=== PATIENT | female | born 1995 | race African-American/Black ===

== ENCOUNTER 2016-10-20 20:12 | Emergency (ER) | payer OTHER ==
[2016-10-20 22:04] VITALS: BP 118/74
== END 2016-10-20 22:04 | disposition home or self-care (01) ==
LOC: ED 20:12
DX: S83.91XA Sprain of unspecified site of right knee, initial encounter (principal); S93.601A Unspecified sprain of right foot, initial encounter; S90.511A Abrasion, right ankle, initial encounter; W10.9XXA Fall (on) (from) unspecified stairs and steps, initial encounter; Y93.89 Activity, other specified; Y92.89 Other specified places as the place of occurrence of the external cause; Y99.8 Other external cause status